=== PATIENT | male | born 1960 | race American Indian/Alaskan Native ===

== ENCOUNTER 2020-06-23 09:01 | Observation (INO) | payer MEDICARE ==
--- NOTE | 2020-06-23 09:20 | Emergency Department Report ---
HPI - General Time Seen by Provider: 06/23/20 09:10 - HPI HPI: This is a 60-year-old -H[place] male presents to the emergency department with complaint of a right-sided headache that starts at the bottom of his head on the right side and then radiates through the right forehead. This began at "5 minutes until 8 this morning." He says that it is associated with right-si ded facial numbness. He denies any extremity numbness or weakness, vision change. He has a past medical history of arthritis, radiculopathy, hypertension. He has not taken anything for symptoms prior to presentation. He says "at first it an 11 but now it is a little better." No recent travel or sick contacts at home. ED Past Medical Hx - Past Medical History Hx Hypertension: Yes Hx Psychiatric Treatment: Yes (DEPRESSION) Hx Tuberculosis: Yes ([facility] (2003)) Hx HIV: Yes Additional medical history: AAA 2009 - Surgical History Additional Surgical History: AAA SURGERY, - Social History Smoking Status: Never Smoker Substance Use Type: None - Medications Home Medications: Home Medications Medication Instructions Recorded Confirmed Last Taken Type HYDROcodone/APAP 5-325 [[place] 1 each PO Q6HR PRN #20 tablet 01/09/15 Unknown Rx 5/325] Ibuprofen [Motrin] 600 mg PO Q8H PRN #40 tablet 01/09/15 Unknown Rx Acetaminophen [Tylenol Arthritis] 650 mg PO Q6HR PRN #30 tablet.er 09/04/18 Unknown Rx Ibuprofen [Motrin] 600 mg PO Q8H PRN #30 tablet 09/04/18 Unknown Rx ED Review of Systems ROS: Stated complaint: HEADACHE Other details as noted in HPI Comment: All other systems reviewed and negative Constitutional: denies: chills, fever Eyes: denies: eye pain, vision change ENT: denies: ear pain, throat pain Respiratory: denies: cough, shortness of breath Cardiovascular: denies: chest pain, palpitations Gastrointestinal: denies: abdominal pain, vomiting Genitourinary: denies: dysuria, discharge Musculoskeletal: denies: back pain, arthralgia Skin: denies: rash, lesions Neurological: headache, numbness Physical Exam - Physical Exam Physical Exam: GENERAL: The patient is well-developed well-nourished. HENT: Normocephalic. Atraumatic. Patient has moist mucous membranes. No nystagmus. EYES: Extraocular motions are intact. NECK: Supple. Trachea is midline. CHEST/LUNGS: Clear to auscultation. There is no respiratory distress noted. HEART/CARDIOVASCULAR: Regular. There is no tachycardia. There is no murmur. ABDOMEN: Abdomen is soft, nontender. Patient has normal bowel sounds. SKIN: Skin is warm and dry. NEURO: The patient is awake, alert, and oriented. The patient is cooperative. No motor deficits. There is subjective decrease sensation to the right side of the face and neck when compared to the left. Normal speech. No facial asymmetry. No pronator drift. MUSCULOSKELETAL: There is no tenderness or deformity. There is no evidence of acute injury. ED Course - Reevaluation(s) Reevaluation #1: 06/23/20 14:17 Lab Results 06/23/20 06/23/20 06/23/20 Range/Units 09:28 09:28 09:28 WBC 7.5 (4.5-11.0) K/mm3 RBC 4.26 (3.65-5.03) M/mm3 Hgb 13.1 (11.8-15.2) gm/dl Hct 37.8 (35.5-45.6) % MCV 89 (84-94) fl MCH 31 (28-32) pg MCHC 35 H (32-34) % RDW 14.3 (13.2-15.2) % Plt Count 192 (140-440) K/mm3 Lymph % (Auto) 26.5 (13.4-35.0) % [place] % (Auto) 8.2 H (0.0-7.3) % Eos % (Auto) 0.9 (0.0-4.3) % Baso % (Auto) 0.5 (0.0-1.8) % Lymph # 2.0 (1.2-5.4) K/mm3 [place] # 0.6 (0.0-0.8) K/mm3 Eos # 0.1 (0.0-0.4) K/mm3 Baso # 0.0 (0.0-0.1) K/mm3 Seg Neutrophils % 63.9 (40.0-70.0) % Seg Neutrophils # 4.8 (1.8-7.7) K/mm3 PT 13.8 (12.2-14.9) Sec. INR 1.05 (0.87-1.13) APTT 26.8 (24.2-36.6) Sec. Thrombin Time 15.7 (15.1-19.6) Sec. Sodium 140 (137-145) mmol/L Potassium 3.8 (3.6-5.0) mmol/L Chloride 106.5 (98-107) mmol/L Carbon Dioxide 24 (22-30) mmol/L Anion Gap 13 mmol/L BUN 18 (9-20) mg/dL Creatinine 1.4 H (0.8-1.3) mg/dL Estimated GFR > 60 ml/min BUN/Creatinine Ratio 13 % Glucose 110 H (75-100) mg/dL POC Glucose (70-105) Calcium 8.5 (8.4-10.2) mg/dL Total Creatine Kinase 101 (55-170) units/L CK-MB (CK-2) 2.4 (0.0-4.0) ng/mL CK-MB (CK-2) Rel Index 2.3 (0-4) Troponin T < 0.010 (0.00-0.029) ng/mL TSH (0.270-4.200) mlU/mL 06/23/20 06/23/20 Range/Units 09:28 09:48 WBC (4.5-11.0) K/mm3 RBC (3.65-5.03) M/mm3 Hgb (11.8-15.2) gm/dl Hct (35.5-45.6) % MCV (84-94) fl MCH (28-32) pg MCHC (32-34) % RDW (13.2-15.2) % Plt Count (140-440) K/mm3 Lymph % (Auto) (13.4-35.0) % [place] % (Auto) (0.0-7.3) % Eos % (Auto) (0.0-4.3) % Baso % (Auto) (0.0-1.8) % Lymph # (1.2-5.4) K/mm3 [place] # (0.0-0.8) K/mm3 Eos # (0.0-0.4) K/mm3 Baso # (0.0-0.1) K/mm3 Seg Neutrophils % (40.0-70.0) % Seg Neutrophils # (1.8-7.7) K/mm3 PT (12.2-14.9) Sec. INR (0.87-1.13) APTT (24.2-36.6) Sec. Thrombin Time (15.1-19.6) Sec. Sodium (137-145) mmol/L Potassium (3.6-5.0) mmol/L Chloride (98-107) mmol/L Carbon Dioxide (22-30) mmol/L Anion Gap mmol/L BUN (9-20) mg/dL Creatinine (0.8-1.3) mg/dL Estimated GFR ml/min BUN/Creatinine Ratio % Glucose (75-100) mg/dL POC Glucose 91 (70-105) Calcium (8.4-10.2) mg/dL Total Creatine Kinase (55-170) units/L CK-MB (CK-2) (0.0-4.0) ng/mL CK-MB (CK-2) Rel Index (0-4) Troponin T (0.00-0.029) ng/mL TSH 0.663 (0.270-4.200) mlU/mL - Consultations Consultation #1: 06/23/20 10:15 Patient was seen by the telemedicine neurologist, Dr. Reis, upon initiation of the code stroke. He saw the patient and gave him a NIH stroke scale of 3 secondary to some right leg weakness and his subjective numbness. The right leg weakness is chronic, per the patient. CT head did not show any acute process. The patient is not a TPA candidate. Given the pain to the right neck radiating into the head, he has recommended CT angiography studies to be done to rule out dissection. ED Medical Decision Making - Lab Data Result diagrams: 06/23/20 09:28 06/23/20 09:28 - EKG Data -: EKG Interpreted by Me EKG shows normal: sinus rhythm, axis (Left axis deviation), intervals (Prolonged AZ interval), QRS complexes (LVH), ST-T waves (Nonspecific ST-T waves) Rate: normal - EKG Data When compared to previous EKG there are: previous EKG unavailable Interpretation: other (Sinus rhythm at 60 bpm, left axis deviation, prolonged AZ interval, LVH, nonspecific ST-T waves. No ST elevation MD) - Radiology Data Radiology results: report reviewed CT head/brain wo con INDICATION / CLINICAL INFORMATION: 60 years Male; MAIN. TECHNIQUE: Routine CT head without contrast. All CT scans at this location are performed using CT dose reduction for ALARA by means of automated exposure control. COMPARISON: No previous exams available for comparison. FINDINGS: There is encephalomalacia involving the temporal lobes are bilaterally which may be related to old infarcts or possibly previous trauma. There are old small lacunar infarcts involving the left basal ganglia. There otherwise appears to be mild cerebral white matter disease most consistent with microvascular angiopathy. The ventricular system is within normal limits in size and configuration. There is no clear CT evidence of acute intracranial hemorrhage or significant mass effect. ORBITS: No significant abnormality of visualized orbits. SINUSES / MASTOIDS: This mild opacification along the posterior right ethmoid and lateral sphenoid sinuses. CRANIOCERVICAL JUNCTION: No significant abnormality. ADDITIONAL FINDINGS: None. IMPRESSION: 1. There is encephalomalacia involving the temporal lobes of bilaterally indicative of old infarcts or possibly related to previous trauma. 2. There are also small lacunar infarcts involving left basal ganglia. There is no CT evidence of acute intracranial hemorrhage. 3. There is opacification involving the posterior right ethmoid and lateral right sphenoid sinuses. CTA head with intravenous contrast CLINICAL HISTORY: CVA, right sided neck pain r/o dissection TECHNIQUE: 0.625 mm thick contiguous axial scans were obtained from the skull base to the skull vertex during rapid bolus administration of intravenous contrast material. Multiplanar reconstructions were produced in the coronal and sagittal planes. In addition 3 plane MIP instructions were produced and reviewed for this report. The axial source images and reconstructed images were reviewed for this report. CONTRAST DOSE REPORT: Omnipaque 350: 100 ml administered intravenously. All CT scans at this location are performed using CT dose reduction for ALARA by means of automated exposure control. FINDINGS: Internal carotid arteries: Calcified atherosclerotic plaque is present along the cavernous segments and clinoid segments of both internal carotid arteries. Maximum degree of stenosis at the supraclinoid segment of the R ICA is on the order of 65%. There is no indication of hemodynamically significant stenosis along the course of the LICA. Middle cerebral arteries: Normal and symmetrical M1 segments of the middle cerebral arteries are demonstrated. No abnormalities seen on evaluation of the insular or opercular branches of middle cerebral arteries. Anterior cerebral arteries: Asymmetry of the A1 segments is noted, left larger than right. Asymmetry is common in this region. No abnormalities are seen along the course of the A2 segments of the anterior cerebral arteries. Vertebral arteries: Left vertebral artery is dominant. Both vertebral arteries contribute to the basilar artery origin. There is no indication of significant basilar artery stenosis. Basilar artery: No significant abnormality. Posterior cerebral arteries: Normal and symmetrical posterior cerebral arteries are demonstrated. Dural sinuses: Dural venous sinuses are well demonstrated on this exam. There is no evidence of dural sinus thrombosis. IMPRESSION: 1. Intercranial atherosclerotic disease is present along the course of the internal carotid arteries. Maximum degree of stenosis is in the supraclinoid region of the R ICA where a 65% stenosis is identified. 2. No indication of large vessel occlusion. CTA neck without and with intravenous contrast material CLINICAL HISTORY: CVA, right sided neck pain r/o dissection TECHNIQUE: Following acquisition of a timing bolus 0.625 mm thick contiguous axial scans were obtained from aortic arch to the skull base during rapid bolus intravenous contrast infusion. In addition to evaluation of axial source images multiplanar reconstructions were produced and reviewed for this report. 3 plane MIP reconstructions were produced and reviewed. Contrast dose report: Omnipaque 350: 100 ml, administered intravenously All CT examinations performed at this facility utilize modulated dose reduction, iterative reconstruction or weight-based dosing, as appropriate, to obtain a radiation dose which is as low as can reasonably be achieved. FINDINGS: Thoracic aorta: Calcified atherosclerotic plaque is observed along the visualized course of the a sending aorta. No additional abnormalities are identified along the course of the thoracic aorta..Dense contrast in the left subclavian vein limits evaluation of the proximal common carotid artery and left subclavian artery. Reflux of contrast into the internal jugular vein produces beam hardening artifact limiting evaluation of the distal portion of the left common carotid artery. The origins of the great vessels have an unremarkable appearance in so far as they can be evaluated on this study. Brachiocephalic artery has an unremarkable appearance. Evaluation of the left subclavian artery is limited by dense contrast in the adjacent subclavian vein. Right carotid artery: Soft plaque is present at the right carotid bifurcation without associated metabolically significant stenosis. Cervical segments of the R ICA h ave an unremarkable appearance. Left carotid artery: Evaluation of the left common carotid artery is limited secondary to dense contrast which has refluxed into the left internal jugular vein. Evaluation of the left carotid bifurcation is remarkable for a combination of calcified and soft plaque without hemodynamically significant stenosis. The left internal carotid artery has an abnormal appearance. There is marked narrowing of the lumen of the left internal carotid artery which is most pronounced at the atlantoaxial junction. There is about a 50% stenosis in this region. This appears to be due to soft atherosclerotic plaque. I do not identify opacification of the false lumen to suggest the possibility of of the LICA dissection. Posterior circulation: Left vertebral artery is dominant. Both vertebral arteries contribute to the basilar artery origin. There is no indication of atherosclerotic disease along the course of the vertebral arteries. The degree of stenosis, if any, is determined utilizing NASCET like criteria. In this case there is a 50% stenosis of the distal cervical segment of the LICA at the level of the atlantoaxial junction. There is no indication of stenosis at the carotid bifurcations. Evaluation of the nonvascular soft tissue structures reveal no abnormality. There is no indication of cervical lymphadenopathy. No abnormalities are seen along the course of the airway. Visualized portions of the parotid glands and the submandibular salivary glands have a normal appearance. Thyroid gland has a normal appearance. Evaluation of the lung apices reveals no evidence of lung nodule or infiltrate. Evaluation of the cervical spine revealed no significant abnormalities. IMPRESSION: 1. No indication of hemodynamically significant stenosis at the carotid bifurcations. 2. No indication of dissection of the R ICA in this patient with right-sided neck pain. 3. 50% stenosis at the distal cervical segment of the LICA as described above. - Medical Decision Making This patient presented to the emergency department with some acute pain from the base of the right side of the skull that radiates through the right front of the head, along with some right-sided facial and neck numbness. A code stroke was initiated and the patient was seen by the telemedicine neurologist immediately upon return from CT imaging of the head without contrast. CT of the head did not show any bleed, shift, mass, ischemia, or any other acute process. Patient was given an NIH stroke scale of 3 secondary to what appears to be some chronic right leg weakness and the subjective right-sided facial and neck numbness. TPA was not recommended by neurology, but they did recommend CT angiography studies to rule out dissection. CT angiography of the head and neck did not show any hemodynamically significant stenosis or any signs of dissection. Patient will be admitted to the hospital for further evaluation and treatment and was accepted for admission by the hospitalist service. Critical Care Time: No Critical care attestation.: If time is entered above; I have spent that time in minutes in the direct care of this critically ill patient, excluding procedure time. ED Disposition Clinical Impression: Right sided numbness, Acute headache, Stroke-like symptoms Disposition: OP ADMIT IP TO THIS HOSP Is pt being admited?: Yes Condition: Fair Time of Disposition: 11:53
--- NOTE | 2020-06-23 09:39 | Cat Scan Report ---
CT head/brain wo con INDICATION / CLINICAL INFORMATION: 60 years Male; MAIN. TECHNIQUE: Routine CT head without contrast. All CT scans at this location are performed using CT dos e reduction for ALARA by means of automated exposure control. COMPARISON: No previous exams available for comparison. FINDINGS: There is encephalomalacia involving the temporal lobes are bilaterally which may be related to old in farcts or possibly previous trauma. There are old small lacunar infarcts involving the left basal corinne glia. There otherwise appears to be mild cerebral white matter disease most consistent with microvasc ular angiopathy. The ventricular system is within normal limits in size and configuration. There is no clear CT eviden ce of acute intracranial hemorrhage or significant mass effect. ORBITS: No significant abnormality of visualized orbits. SINUSES / MASTOIDS: This mild opacification along the posterior right ethmoid and lateral sphenoid si nuses. CRANIOCERVICAL JUNCTION: No significant abnormality. ADDITIONAL FINDINGS: None. IMPRESSION: 1. There is encephalomalacia involving the temporal lobes of bilaterally indicative of old infarcts o r possibly related to previous trauma. 2. There are also small lacunar infarcts involving left basal ganglia. There is no CT evidence of acu te intracranial hemorrhage. 3. There is opacification involving the posterior right ethmoid and lateral right sphenoid sinuses. The study was specified as code stroke and called emergently to Dr. Figueroa in the ER at 8:34 AM [facility] standard time. Signer Name: Chavez Roberson MD Signed: 06/23/2020 9:35 AM Workstation Name: [id number]
[2020-06-23 09:40] LABS: Hematocrit 37.8 % (35.5-45.6); Hemoglobin 13.1 gm/dl (11.8-15.2); Mean Corpuscular HGB Conc 35 % (32-34); Mean Corpuscular Volume 89 fl (84-94); Red Blood Count 4.26 M/mm3 (3.65-5.03); Red Cell Distribution Width 14.3 % (13.2-15.2)
[2020-06-23 09:41] LABS: Basophils % (Auto) 0.5 % (0.0-1.8); Eosinophils # (Auto) 0.1 K/mm3 (0.0-0.4); Eosinophils % (Auto) 0.9 % (0.0-4.3); Lymphocytes % (Auto) 26.5 % (13.4-35.0); Monocytes # (Auto) 0.6 K/mm3 (0.0-0.8); Monocytes % (Auto) 8.2 % (0.0-7.3); Platelet Count 192 K/mm3 (140-440)
--- NOTE | 2020-06-23 09:42 | Emergency Department Report ---
ED Neuro Deficit HPI - General Stated Complaint: HEADACHE Time Seen by Provider: 06/23/20 09:10 - History of Present Illness Initial Comments: [facility] Date of Service: 06/23/2020 09:18:00 Impression: Rule Out Acute Ischemic Stroke Comments/Sign-Out: acute onset right face, head, and arm numbness - he has chronic right leg weakness from hip pain. Concerning for L parietal/subcortical stroke vs complicated migraine. No new disabling deficit. Given L occipital pain radiating to the right frontal region, recommend CTA head/neck to eval for vertebral artery dissection. Mechanism of Stroke: Possible Thromboembolic Possible Cardioembolic Small Vessel Disease Metrics: Last Known Well: 06/23/2020 08:30:00 [facility] Notification Time: 06/23/2020 09:17:27 Arrival Time: 06/23/2020 09:01:00 Stamp Time: 06/23/2020 09:18:00 Time First Login Attempt: 06/23/2020 09:23:28 Video Start Time: 06/23/2020 09:23:28 Symptoms: right head/neck numbness NIHSS Start Assessment Time: 06/23/2020 09:30:08 Patient is not a candidate for Alteplase/Activase. Patient was not deemed candidate for Alteplase/Activase thrombolytics because of Resolved symptoms (no residual disabling symptoms). Video End Time: 06/23/2020 09:39:18 CT head showed no acute hemorrhage or acute core infarct. CT head was reviewed. Lower Likelihood of Large Vessel Occlusion but Following Stat Studies are Recommended CTA Head and Neck. ED Physician notified of diagnostic impression and management plan on 06/23/2020 09:39:18 Our recommendations are outlined below. Recommendations: Activate Stroke Protocol Admission/Order Set Stroke/Telemetry Floor Neuro Checks Bedside Swallow Eval DVT Prophylaxis IV Fluids, Normal Saline Head of Bed 30 Degrees Euglycemia and Avoid Hyperthermia (PRN Acetaminophen) start ASA if CT head is negative for hemorrhage. Routine Consultation with Inhouse Neurology for Follow up Care Sign Out: Discussed with Emergency Department Provider History of Present Illness: Patient is a 60 year old Male. Patient was brought by EMS for symptoms of right head/neck numbness 60 yo man with acute onset right neck and head numbness starting at approx 0755. He states he felt a sharp stabbing pain when he rolled over at approx 0755. No focal weakness of his limbs. No LOC/convulsion. No trouble speaking/swallowing. No vision changes. Past Medical History: Hypertension Anticoagulant use: No Antiplatelet use: No Examination: 1A: Level of Consciousness - Alert; keenly responsive + 0 1B: Ask Month and Age - Both Questions Right + 0 1C: Blink Eyes & Squeeze Hands - Performs Both Tasks + 0 2: Test Horizontal Extraocular Movements - Normal + 0 3: Test Visual Carballo - No Visual Loss + 0 4: Test Facial Palsy (Use Grimace if Obtunded) - Normal symmetry + 0 5A: Test Left Arm Motor Drift - No Drift for 10 Seconds + 0 5B: Test Right Arm Motor Drift - No Drift for 10 Seconds + 0 6A: Test Left Leg Motor Drift - No Drift for 5 Seconds + 0 6B: Test Right Leg Motor Drift - Drift, hits bed + 2 7: Test Limb Ataxia (FNF/Heel-Banks) - No Ataxia + 0 8: Test Sensation - Mild-Moderate Loss: Less Sharp/More Dull + 1 9: Test Language/Aphasia - Normal; No aphasia + 0 10: Test Dysarthria - Normal + 0 11: Test Extinction/Inattention - No abnormality + 0 NIHSS Score: 3 Patient/Family was informed the Neurology Consult would happen via TeleHealth consult by way of interactive audio and video telecommunications and consented to receiving care in this manner. Due to the immediate potential for life-threatening deterioration due to underlying acute neurologic illness, I spent 35 minutes providing critical care. This time includes time for face to face visit via telemedicine, review of medical records, imaging studies and discussion of findings with providers, the patient and/or family. Dr Kamar Reis [facility] Case [id number] - Related Data Home Medications: Previous Rx's Medication Instructions Recorded Last Taken Type HYDROcodone/APAP 5-325 [[place] 1 each PO Q6HR PRN #20 tablet 01/09/15 Unknown Rx 5/325] Ibuprofen [Motrin] 600 mg PO Q8H PRN #40 tablet 01/09/15 Unknown Rx Acetaminophen [Tylenol Arthritis] 650 mg PO Q6HR PRN #30 tablet.er 09/04/18 Unknown Rx Ibuprofen [Motrin] 600 mg PO Q8H PRN #30 tablet 09/04/18 Unknown Rx Allergies/Adverse Reactions: Allergies Allergy/AdvReac Type Severity Reaction Status Date / Time No Known Allergies Allergy Unverified 09/04/18 10:55 ED Review of Systems ROS: Stated complaint: HEADACHE Other details as noted in HPI Constitutional: denies: chills, fever Eyes: denies: eye pain, vision change ENT: denies: ear pain, throat pain Respiratory: denies: cough, shortness of breath Cardiovascular: denies: chest pain, palpitations Gastrointestinal: denies: abdominal pain, vomiting Genitourinary: denies: dysuria, discharge Musculoskeletal: denies: back pain, arthralgia Skin: denies: rash, lesions Neurological: headache, numbness ED Past Medical Hx - Past Medical History Hx Hypertension: Yes Hx Psychiatric Treatment: Yes (DEPRESSION) Hx Tuberculosis: Yes ([facility] (2003)) Hx HIV: Yes Additional medical history: AAA 2009 - Surgical History Additional Surgical History: AAA SURGERY, - Social History Smoking Status: Never Smoker Substance Use Type: None - Medications Home Medications: Home Medications Medication Instructions Recorded Confirmed Last Taken Type HYDROcodone/APAP 5-325 [[place] 1 each PO Q6HR PRN #20 tablet 01/09/15 Unknown Rx 5/325] Ibuprofen [Motrin] 600 mg PO Q8H PRN #40 tablet 01/09/15 Unknown Rx Acetaminophen [Tylenol Arthritis] 650 mg PO Q6HR PRN #30 tablet.er 09/04/18 Unknown Rx Ibuprofen [Motrin] 600 mg PO Q8H PRN #30 tablet 09/04/18 Unknown Rx ED Neuro Physical Exam - General Suspected Stroke: Yes - NIHSS Assessment Interval: Baseline 1a. Level of Consciousness: alert/keenly responsive 1b. LOC Questions: answers both correctly 1c. LOC Commands: performs tasks correctly 2. Best Gaze: normal 3. Visual: no visual loss 4. Facial Palsy: normal symmetrical movement 5b. Motor Arm Right: no drift 5a. Motor Arm Left: amputation/joint fusion 6a. Motor Leg Left: no drift 6b. Motor Leg Right: some gravity effort 7. Limb Ataxia: absent 8. Sensory: mild/moderate sensory loss 9. Best Language: no aphasia 10. Dysarthria: normal 11. Extinction/Inattention: no abnormality Total Score: 3 Stroke Severity: Minor Stroke Critical care attestation.: If time is entered above; I have spent that time in minutes in the direct care of this critically ill patient, excluding procedure time. ED Disposition Clinical Impression: Right sided numbness Disposition: DC-[id number] OP ADMIT IP TO THIS HOSP Is pt being admited?: Yes Condition: Stable
[2020-06-23 09:51] LABS: INR 1.05 (0.87-1.13)
[2020-06-23 09:52] LABS: Partial Thromboplastin Time 26.8 Sec. (24.2-36.6); Thrombin Time 15.7 Sec. (15.1-19.6)
[2020-06-23 09:56] LABS: BUN/Creatinine Ratio 13; Blood Urea Nitrogen 18 mg/dL (9-20); Calcium 8.5 mg/dL (8.4-10.2); Creatine Kinase MB 2.4 ng/mL (0.0-4.0); Hemolysis Index 9
[2020-06-23] MEDS ORDERED: MORPHINE 4 MG/1 ML INJ IV ONE (11:21)
--- NOTE | 2020-06-23 11:36 | Cat Scan Report ---
CTA neck without and with intravenous contrast material CLINICAL HISTORY: CVA, right sided neck pain r/o dissection TECHNIQUE: Following acquisition of a timing bolus 0.625 mm thick contiguous axial scans were obtained from aort ic arch to the skull base during rapid bolus intravenous contrast infusion. In addition to evaluation of axial source images multiplanar reconstructions were produced and reviewed for this report. 3 mikey ne MIP reconstructions were produced and reviewed. Contrast dose report: Omnipaque 350: 100 ml, administered intravenously All CT examinations performed at this facility utilize modulated dose reduction, iterative reconstruc tion or weight-based dosing, as appropriate, to obtain a radiation dose which is as low as can reason ably be achieved. FINDINGS: Thoracic aorta: Calcified atherosclerotic plaque is observed along the visualized course of the a sen ding aorta. No additional abnormalities are identified along the course of the thoracic aorta..Dense contrast in the left subclavian vein limits evaluation of the proximal common carotid artery and left subclavian artery. Reflux of contrast into the internal jugular vein produces beam hardening artifac t limiting evaluation of the distal portion of the left common carotid artery. The origins of the gre at vessels have an unremarkable appearance in so far as they can be evaluated on this study. Brachioc ephalic artery has an unremarkable appearance. Evaluation of the left subclavian artery is limited by dense contrast in the adjacent subclavian vein. Right carotid artery: Soft plaque is present at the right carotid bifurcation without associated meta bolically significant stenosis. Cervical segments of the R ICA have an unremarkable appearance. Left carotid artery: Evaluation of the left common carotid artery is limited secondary to dense contr ast which has refluxed into the left internal jugular vein. Evaluation of the left carotid bifurcatio n is remarkable for a combination of calcified and soft plaque without hemodynamically significant st enosis. The left internal carotid artery has an abnormal appearance. There is marked narrowing of the lumen of the left internal carotid artery which is most pronounced at the atlantoaxial junction. The re is about a 50% stenosis in this region. This appears to be due to soft atherosclerotic plaque. I d o not identify opacification of the false lumen to suggest the possibility of of the LICA dissection. Posterior circulation: Left vertebral artery is dominant. Both vertebral arteries contribute to the b asilar artery origin. There is no indication of atherosclerotic disease along the course of the verte bral arteries. The degree of stenosis, if any, is determined utilizing NASCET like criteria. In this case there is a 50% stenosis of the distal cervical segment of the LICA at the level of the atlantoaxial junction. There is no indication of stenosis at the carotid bifurcations. Evaluation of the nonvascular soft tissue structures reveal no abnormality. There is no indication of cervical lymphadenopathy. No abnormalities are seen along the course of the airway. Visualized porti ons of the parotid glands and the submandibular salivary glands have a normal appearance. Thyroid gla nd has a normal appearance. Evaluation of the lung apices reveals no evidence of lung nodule or infil trate. Evaluation of the cervical spine revealed no significant abnormalities. IMPRESSION: 1. No indication of hemodynamically significant stenosis at the carotid bifurcations. 2. No indication of dissection of the R ICA in this patient with right-sided neck pain. 3. 50% stenosis at the distal cervical segment of the LICA as described above. Signer Name: Carlton Bertrand MD Signed: 06/23/2020 11:31 AM Workstation Name: [id number]
--- NOTE | 2020-06-23 11:47 | Cat Scan Report ---
CTA head with intravenous contrast CLINICAL HISTORY: CVA, right sided neck pain r/o dissection TECHNIQUE: 0.625 mm thick contiguous axial scans were obtained from the skull base to the skull vertex during r apid bolus administration of intravenous contrast material. Multiplanar reconstructions were produced in the coronal and sagittal planes. In addition 3 plane MIP instructions were produced and reviewed for this report. The axial source images and reconstructed images were reviewed for this report. CONTRAST DOSE REPORT: Omnipaque 350: 100 ml administered intravenously. All CT scans at this location are performed using CT dose reduction for ALARA by means of automated e xposure control. FINDINGS: Internal carotid arteries: Calcified atherosclerotic plaque is present along the cavernous segments a nd clinoid segments of both internal carotid arteries. Maximum degree of stenosis at the supraclinoid segment of the R ICA is on the order of 65%. There is no indication of hemodynamically significant s tenosis along the course of the LICA. Middle cerebral arteries: Normal and symmetrical M1 segments of the middle cerebral arteries are demo nstrated. No abnormalities seen on evaluation of the insular or opercular branches of middle cerebral arteries. Anterior cerebral arteries: Asymmetry of the A1 segments is noted, left larger than right. Asymmetry is common in this region. No abnormalities are seen along the course of the A2 segments of the anteri or cerebral arteries. Vertebral arteries: Left vertebral artery is dominant. Both vertebral arteries contribute to the basi lar artery origin. There is no indication of significant basilar artery stenosis. Basilar artery: No significant abnormality. Posterior cerebral arteries: Normal and symmetrical posterior cerebral arteries are demonstrated. Dural sinuses: Dural venous sinuses are well demonstrated on this exam. There is no evidence of dural sinus thrombosis. IMPRESSION: 1. Intercranial atherosclerotic disease is present along the course of the internal carotid arteries. Maximum degree of stenosis is in the supraclinoid region of the R ICA where a 65% stenosis is identi fied. 2. No indication of large vessel occlusion. Signer Name: Carlton Bertrand MD Signed: 06/23/2020 11:42 AM Workstation Name: [id number]
--- NOTE | 2020-06-23 12:29 | History and Physical Report ---
History of Present Illness Date of examination: 06/23/20 Date of admission: 06/23/20 11:54 Chief complaint: Right-sided neck pain and headache associated with right facial and neck and right arm numbness History of present illness: Very pleasant 60-year-old -[place] male patient who is obese with past medical history of depression ,hypertension, abdominal aortic aneurysm repair Presented to the emergency room with sudden onset of right-sided headache right neck pain and right-sided face numbness. Patient's headache was severe when he came in however significantly improved at the time of my evaluation. Patient denies any history of seizures or CVA in the past, however complains of right lower extremity pain and weakness Which he attributes to his hip surgery many years ago. Telemetry neurologist evaluated the patient, not a candidate for TPA or th rombectomy Initial work-up in the emergency room with CT scan head without contrast. No acute abnormalities, old infarcts noted Past History Past Medical History: HIV/AIDS, hypertension, other (AAA, history of TB) Past Surgical History: Other (AAA repair) Social history: denies: smoking, alcohol abuse, prescription drug abuse Family history: cancer, hypertension Medications and Allergies Allergies Allergy/AdvReac Type Severity Reaction Status Date / Time No Known Allergies Allergy Unverified 09/04/18 10:55 Home Medications Medication Instructions Recorded Confirmed Last Taken Type HYDROcodone/APAP 5-325 [[place] 1 each PO Q6HR PRN #20 tablet 01/09/15 06/23/20 Unknown Rx 5/325] Acetaminophen [Tylenol Arthritis] 650 mg PO Q6HR PRN #30 tablet.er 09/04/18 06/23/20 Unknown Rx Ibuprofen [Motrin] 600 mg PO Q8H PRN #30 tablet 09/04/18 06/23/20 Unknown Rx Amlodipine Besylate/Benazepril 10 mg PO QDAY 06/23/20 06/23/20 Unknown History [Amlodipine-Benazepril 10-40 mg] Gabapentin [Neurontin] 800 mg PO Q4H PRN 06/23/20 06/23/20 Unknown History Review of Systems Constitutional: no weight loss, no weight gain, no fever, no chills Ears, nose, mouth and throat: no nasal congestion, no nasal discharge Cardiovascular: no chest pain, no orthopnea Respiratory: no hemoptysis, no shortness of breath Gastrointestinal: no abdominal pain, no nausea, no vomiting Genitourinary Male: no dysuria, no flank pain Musculoskeletal: no myalgias, no arthritis Integumentary: no rash, no lesions Neurological: weakness, numbness, headaches Psychiatric: no anxiety, no depression Endocrine: no cold intolerance, no heat intolerance Hematologic/Lymphatic: no easy bruising, no easy bleeding Allergic/Immunologic: no urticaria, no allergic rhinitis Exam - Constitutional Vitals: Temp Pulse Resp BP Pulse Ox 97.8 F 61 14 122/72 98 06/23/20 09:24 06/23/20 10:00 06/23/20 10:00 06/23/20 10:00 06/23/20 10:00 General appearance: Present: no acute distress, well-nourished, obese - EENT Eyes: Present: PERRL, EOM intact - Neck Neck: Present: supple, normal ROM - Respiratory Respiratory effort: normal Respiratory: bilateral: diminished, negative: rales, rhonchi, wheezing - Cardiovascular Rhythm: regular - Extremities Extremities: no ischemia, No edema - Abdominal General gastrointestinal: Present: soft, non-tender, non-distended, normal bowel sounds - Integumentary Integumentary: Present: clear, warm - Musculoskeletal Musculoskeletal: strength equal bilaterally - Psychiatric Psychiatric: appropriate mood/affect, cooperative - Neurologic Neurologic: CNII-XII intact, moves all extremities HEART Score - HEART Score Troponin: Troponin T < 0.010 ng/mL (0.00-0.029) 06/23/20 09:28 Results - Labs CBC & Chem 7: 06/23/20 09:28 06/23/20 09:28 Labs: Abnormal lab results 06/23/20 06/23/20 Range/Units 09: 09:28 MCHC 35 H (32-34) % [place] % (Auto) 8.2 H (0.0-7.3) % Creatinine 1.4 H (0.8-1.3) mg/dL Glucose 110 H (75-100) mg/dL Assessment and Plan --Neuro symptoms; headache/right-sided numbness Evaluate for acute CVA, not a candidate for TPA Aspirin and statin Neuro checks, neuro work-up CT head Wo: encephalomalacia involving temporal lobes bilaterally indicative of old infarcts no acute abnormality noted CTA neck ; no hemodynamically significant stenosis no hemodynamically significant stenosis noted no hemodynamically significant stenosis noted CTA head; CTA head intracranial atherosclerotic disease along the course of internal carotid arteries Maximum stenosis ICA near 65% stenosis noted next 6 Carotid Doppler Echocardiogram CTA head --Acute CVA; Not a candidate for TPA Aspirin and statin Neurology consult Neuro work-up CTA neck, CTA head, MRI brain echocardiogram PT OT ST, rehab --Hypertension. Permissive hypertension per stroke protocol Maintain systolic blood pressures around 180 190 Hydralazine as needed --Dyslipidemia; statin Low-cholesterol diet --Mild acute kidney injury; vasomotor nephropathy Gentle IV hydration, monitor renal function, avoid nephrotoxins --Obesity; BMI 36.2 Patient needs weight reduction when medically stable --DVT prophylaxis; Lovenox --DC planning; per case management We will closely monitor the patient and adjust management as needed Plan of care reviewed with the patient and the nurse Follow neurology evaluation and recommendations I spent total 50 minutes coordinating this admission
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
[2020-06-23 16:36] VITALS: BP 145/69
--- NOTE | 2020-06-23 17:01 | Vascular Lab Report ---
DUPLEX DOPPLER ULTRASOUND CAROTID, BILATERAL INDICATION / CLINICAL INFORMATION: stroke. COMPARISON: None available. FINDINGS: RIGHT CAROTID: Small amount of plaque in the carotid bulb. - PLAQUE ESTIMATE (%): < 50% - CCA velocity: 79 cm/sec. - ICA peak systolic velocity: 76 cm/sec. - ICA/CCA PSV Ratio: 1.0 Right Vertebral Artery: Antegrade flow. LEFT CAROTID: Small amount of plaque in the carotid bulb. - PLAQUE ESTIMATE: < 50% - CCA velocity: 69 cm/sec. - ICA peak systolic velocity: 60 cm/sec. - ICA/CCA PSV Ratio: 0.9 Left Vertebral Artery: Antegrade flow. IMPRESSION: 1. Right Internal Carotid Artery: Less than 50% diameter stenosis. 2. Left Internal Carotid Artery: Less than 50% diameter stenosis. Velocity criteria are extrapolated from diameter data as defined by the Society of Radiologists in Ul trasound Consensus Conference, Radiology 2003; 229;340-346. NO STENOSIS (NORMAL) * Plaque = none; ICA PSV < 125 cm/sec; ICA/CCA PSV Ratio < 2.0 <50% STENOSIS * Plaque < 50%; ICA PSV < 125 cm/sec; ICA/CCA PSV Ratio < 2.0 50-69% STENOSIS * Plaque > 50%; ICA PSV = 125-230 cm/sec; ICA/CCA PSV Ratio = 2.0-4.0 >70% BUT <100% STENOSIS * Plaque > 50%; ICA PSV > 230 cm/sec; ICA/CCA PSV Ratio > 4.0 NEAR OCCLUSION * Plaque = visible lumen; ICA PSV = high/low/none; ICA/CCA PSV Ratio = variable TOTAL OCCLUSION * Plaque = no lumen; ICA PSV = none; ICA/CCA PSV Ratio = N/A Signer Name: Jovanny Bhakta MD Signed: 06/23/2020 4:56 PM Workstation Name: [id number]
[2020-06-23] MEDS ORDERED: HYDROcodone/ACETAMINOPHEN 5-325 MG TAB PO PRN (17:49)
[2020-06-23] MEDS ORDERED: ZOLPIDEM 5 MG TAB PO PRN (17:50)
[2020-06-23] MEDS ORDERED: DOCUSATE SODIUM 100 MG CAP PO PRN (17:50)
[2020-06-23] MEDS ORDERED: MORPHINE 2 MG/1 ML INJ IV PRN (17:50)
[2020-06-23] MEDS ORDERED: ENOXAPARIN 40 MG/0.4 ML INJ SUB-Q SCH (22:00)
--- NOTE | 2020-06-24 07:23 | Discharge Summary ---
Providers - Providers Date of Admission: 06/23/20 11:54 Date of discharge: 06/23/20 Attending physician: LIV MIX 06/23/20 Consult to Physician [CONS] Routine Comment: Consulting Provider: AYSE MANRIQUE Physician Instructions: Reason For Exam: Neuro symptoms/acute CVA 06/23/20 12:33 Occupational Therapy Evaluate and Treat [CONS] Routine Comment: Reason For Exam: Neuro deficits Physical Therapy Evaluation and Treat [CONS] Routine Comment: Reason For Exam: Neuro deficits Primary care physician: KINGSLEY PABLO Hospitalization Condition: Fair Disposition: DC-07 LEFT AGAINST MED ADVICE Exam - Constitutional Vitals: Temp Pulse Resp BP Pulse Ox 97.9 F 61 17 145/69 98 06/23/20 16:34 06/23/20 16:34 06/23/20 16:34 06/23/20 16:34 06/23/20 16:34 Plan Forms: AMA Form
[2020-06-24] MEDS ORDERED: amLODIPine 10 MG TAB PO SCH (10:00)
[2020-06-24] MEDS ORDERED: LISINOPRIL 40 MG TAB PO SCH (10:00)
[2020-06-24] MEDS ORDERED: AMLODIPINE BESYLATE PO SCH (10:00)
[2020-06-24] MEDS ORDERED: ASPIRIN 325 MG TAB PO SCH (10:00)
[2020-06-24] MEDS ORDERED: PANTOPRAZOLE 40 MG INJ IV SCH (10:00)
[2020-06-24] MEDS ORDERED: BENAZEPRIL PO SCH (10:00)
[2020-06-24] MEDS ORDERED: [UNRECOGNIZED DRUG - OTHER] PO SCH (10:00)
== END 2020-06-23 18:45 | disposition left against medical advice (07) ==
LOC: ED 09:01 → 4A 11:54
PROVIDERS: ADMIT Internal Medicine; ATTEND Internal Medicine
DX: I63.9 Cerebral infarction, unspecified (principal); I10 Essential (primary) hypertension; E78.5 Hyperlipidemia, unspecified; N17.9 Acute kidney failure, unspecified; N17.0 Acute kidney failure with tubular necrosis; E66.9 Obesity, unspecified; R29.703 NIHSS score 3; R51 Headache; R20.0 Anesthesia of skin; R29.90 Unspecified symptoms and signs involving the nervous system; Z68.36 Body mass index [BMI] 36.0-36.9, adult; Z21 Asymptomatic human immunodeficiency virus [HIV] infection status; Z98.890 Other specified postprocedural states; Z79.82 Long term (current) use of aspirin
CPT/HCPCS: 36415; 70450; 70496; 70498; 80048; 82550; 82553; 82962; 84443; 84484; 85025; 85610; 85670; 85730; 93005; 93306; 93880; 96374; 99291; G0378; J2270; Q9967